=== PATIENT | female | born 1950 | race Asian ===

== ENCOUNTER → 2017-05-18 | Outpatient (CLI) | payer BC ==
[~2017-05-18] MED LIST: ASCO500 PO; CALC-1009 PO; METF500T4 PO; MULT1CAP32 PO; PARO20TA24 PO; SIMV-259 PO
== END | disposition home or self-care (01) ==
LOC: RADPV 09:49
PROVIDERS: ATTEND Internal Medicine
DX: I70.0 Atherosclerosis of aorta (principal)
CPT/HCPCS: 71020

== ENCOUNTER 2018-02-10 06:10 | Emergency (ER) | payer BC, OTHER ==
[~2018-02-10] VITALS: Ht 152.4 cm; Wt 58.2 kg
[~2018-02-10 06:10] MED LIST changes: -METF500T4 PO; +METF500T6 PO
[2018-02-10 06:24] LABS: GLUCOSE,POINT OF CARE 99 MG/DL (70-110)
[2018-02-10] MEDS ORDERED: CYCL10TA7 PO (06:31)
[2018-02-10] MEDS ORDERED: OMEP20CA10 PO (06:31)
[2018-02-10] MEDS ORDERED: LOSA100T29 PO (06:31)
[2018-02-10] MEDS ORDERED: AMLO5TAB66 PO (06:31)
[2018-02-10] MEDS ORDERED: ATOR20TA65 PO (06:31)
[2018-02-10] MEDS ORDERED: MECLIZINE HCL 25 MG TABLET PO ONE (07:15)
[2018-02-10] MEDS ORDERED: ONDANSETRON HCL 4 MG TABLET PO ONE (07:15)
[2018-02-10 07:45] LABS: BASOPHILS % (AUTO) 1.4 % (0.0-2.0); EOSINOPHILS % (AUTO) 2.1 % (1.0-6.0); HEMATOCRIT 35.8 % (36-46); HEMOGLOBIN 12.3 g/dL (12.0-16.0); LYMPHOCYTES # (AUTO) 1.2 K/uL (1.0-4.8); LYMPHOCYTES % (AUTO) 31.5 % (22.0-44.0); MEAN CORPUSCULAR HEMOGLOBIN 28.4 pg (26.0-34.0); MEAN CORPUSCULAR HGB CONC 34.4 G/dL (31.0-37.0); MEAN CORPUSCULAR VOLUME 83 fL (80-100); MONOCYTES # (AUTO) 0.3 K/uL (0.1-1.0); MONOCYTES % (AUTO) 8.3 % (2.0-9.0); NEUTROPHILS # (AUTO) 2.2 K/uL (1.8-7.7); NEUTROPHILS % (AUTO) 56.7 % (40.0-70.0); PLATELET COUNT (AUTO) 254 K/uL (150-450); RED BLOOD CELL COUNT(AUTO) 4.33 MIL/uL (4.00-5.20); RED CELL DISTRIBUTION WIDTH 13.6 % (11.5-14.5)
[2018-02-10 08:02] LABS: ANION GAP 10 mmol/L (8-16); CALCIUM, TOTAL 8.6 mg/dL (8.8-10.5); CARBON DIOXIDE 26 mmol/L (22-29); CHLORIDE 104 mmol/L (98-107); CREATININE 0.92 mg/dL (0.60-1.30); GLOMERULAR FILTR. RATE CALC > 60 mL/min (>60); GLUCOSE,RANDOM 101 mg/dL (70-110); POTASSIUM 4.4 mmol/L (3.5-5.1); SODIUM SERUM 140 mmol/L (136-145); UREA NITROGEN, BLOOD 14 mg/dL (7-18)
[2018-02-10 08:07] LABS: ALANINE AMINOTRANSFERASE 21 U/L (12-78); ALKALINE PHOSPHATASE 63 U/L (46-116); ASPARTATE AMINOTRANSFERASE 16 U/L (15-37); BILIRUBIN,TOTAL 0.3 mg/dL (0.1-1.0); TOTAL PROTEIN, SERUM 7.9 g/dL (6.4-8.2)
[2018-02-10 09:10] VITALS: BP 152/75
== END 2018-02-10 09:10 | disposition home or self-care (01) ==
LOC: EMS 06:11
DX: H81.399 Other peripheral vertigo, unspecified ear (principal); R51 Headache; M54.2 Cervicalgia; E11.9 Type 2 diabetes mellitus without complications; E78.00 Pure hypercholesterolemia, unspecified
CPT/HCPCS: 36415; 70450; 80053; 81002; 82962; 84484; 85025; 93005; 99285; Q0162